=== PATIENT | female | born 1985 | race Caucasian/White ===

== ENCOUNTER → 2016-11-28 | Outpatient (CLI) | payer OTHER | LOC: FIMAGING 07:36 | PROVIDERS: ATTEND Obstetrics & Gynecology | DX: O26.852 Spotting complicating pregnancy, second trimester (principal); Z3A.17 17 weeks gestation of pregnancy ==

== ENCOUNTER → 2016-12-09 | Outpatient (CLI) | payer OTHER | LOC: FIMAGING 14:07 | PROVIDERS: ATTEND Obstetrics & Gynecology | DX: O26.879 Cervical shortening, unspecified trimester (principal); Z3A.19 19 weeks gestation of pregnancy ==

== ENCOUNTER → 2016-12-17 | Outpatient (CLI) | payer OTHER | LOC: FIMAGING 14:48 | PROVIDERS: ATTEND Obstetrics & Gynecology | DX: Z34.92 Encounter for supervision of normal pregnancy, unspecified, second trimester (principal); Z3A.20 20 weeks gestation of pregnancy ==

== ENCOUNTER → 2016-12-24 | Outpatient (CLI) | payer OTHER | LOC: FIMAGING 14:20 | PROVIDERS: ATTEND Obstetrics & Gynecology | DX: O26.872 Cervical shortening, second trimester (principal); Z3A.20 20 weeks gestation of pregnancy ==

== ENCOUNTER → 2016-12-30 | Outpatient (CLI) | payer OTHER | LOC: FIMAGING 07:39 | PROVIDERS: ATTEND Obstetrics & Gynecology | DX: O26.872 Cervical shortening, second trimester (principal); Z3A.22 22 weeks gestation of pregnancy ==

== ENCOUNTER → 2017-01-06 | Outpatient (CLI) | payer OTHER | LOC: FIMAGING 09:30 | PROVIDERS: ATTEND Obstetrics & Gynecology | DX: O26.872 Cervical shortening, second trimester (principal); Z3A.23 23 weeks gestation of pregnancy ==

== ENCOUNTER 2017-03-13 11:11 | Observation (INO) | payer OTHER ==
--- NOTE | 2017-03-13 14:35 | GHP ---
[f rep st] PREOP HISTORY AND PHYSICAL DATE OF ADMISSION: 03/13/2017 Observation History and Physical ADMITTING DIAGNOSIS: Intrauterine at 32-4/7 weeks' gestation with contractions. HISTORY OF PRESENT ILLNESS: The patient is a 31-year-old, 2, para 1-0-0-1, who is 32-4/7 wee ks' gestation set by a first trimester ultrasound. She has been followed in this for cervi bettina shortening and cervical funneling. Has been monitored with cervical length ultrasounds during he r second trimester, with the last evaluation at approximately 28 weeks. At that time, her cervix had been stable for over a month between 2.3 and 2.8 cm. She was started on vaginal Prometrium and has continued that to this point. On the night of the , the patient began having increased contractio ns, which were radiating from her abdomen to her lower back, causing episodes of shortness of breath because of pain. They were rhythmic, increasing in intensity over the evening, and she noticed some bright red vaginal discharge. She presented to the office for evaluation. Fundal height was appropr iate. heart tones were 130s and appropriate for gestational age. fibronectin was done. Cervical exam was performed, and her cervix was found to be 1 to 1.5 cm, 60% effaced, and soft. The patient was sent to labor and delivery for continuous monitoring, evaluation for labor , and to await the results of fibronectin. On Labor and Delivery, patient was monitored. Her heart tones were in the 130s, reactive, moderate variability, category 1. She had some irritab ility, but no regular contractions over several hours of monitoring, and her fibronectin return ed as negative. At this point, the patient was given reassurance and discharged home with instructmaddy ns to continue her vaginal progesterone and continue her adequate p.o. hydration and modified activit y, as well as pelvic rest, and to follow up in the office as scheduled on 03/18/2017, and to call for increased contractions, vaginal bleeding, or other concerns. /[id number]/MODL
== END 2017-03-13 14:00 | disposition home or self-care (01) ==
LOC: INTOOBSV 11:11 → FLD 11:11
PROVIDERS: ADMIT Obstetrics & Gynecology; ATTEND Obstetrics & Gynecology
DX: O60.03 Preterm labor without delivery, third trimester (principal); O26.873 Cervical shortening, third trimester; Z3A.32 32 weeks gestation of pregnancy
CPT/HCPCS: 59025; G0378

== ENCOUNTER 2017-05-09 06:00 | Inpatient (IN) | payer OTHER ==
[2017-05-09] MEDS ORDERED: LIDOCAINE 1% 300 MG/30 ML SDV ONE ×2 (09:18)
[2017-05-09] MEDS ORDERED: OXYTOCIN 10 UNIT/ML VIAL ONE ×2 (09:19)
[2017-05-09] MEDS ORDERED: AMMONIA AROMATIC 1 EACH AMP IH ONE ×2 (09:19)
[2017-05-09] MEDS ORDERED: OLIVE OIL 118 ML BTL ONE ×2 (09:19)
[2017-05-09] MEDS ORDERED: MISOPROSTOL 200 MCG TAB ONE ×2 (09:20)
[2017-05-09 09:25] LABS: PLATELET COUNT 192 10^3/uL (150-400)
[2017-05-09] MEDS ORDERED: LR 500 ML IV PRN ×2 (09:37)
[2017-05-09] MEDS ORDERED: OXYTOCIN 30 UNIT in LR 500 ML IV SCH ×2 (09:45→19:15)
--- NOTE | 2017-05-09 10:13 | GHP ---
[f rep st] PREOP HISTORY AND PHYSICAL DATE OF ADMISSION: 05/09/2017 ADMITTING DIAGNOSIS: Intrauterine at 40 and 4/7 weeks' gestation for elective induction of labor. HISTORY OF PRESENT ILLNESS: The patient is a 32-year-old, 4, para 1-0-2-1, with a last menst rual period of 07/29/2016, and EDC of 05/05/2017. She has had good care at [facility], [place] since transfer from [facility] at 27 weeks. Early in her she was noted to have a shortened cervical length on a 20 week anatomy scan. She was started on vaginal progesterone and watched very closely throughout her second trimester for signs and symptoms of labor or cervical incompetence. She stabilized, was discontinued off her vaginal progesterone at 36 weeks and has now progressed to 40 and 4/7 weeks' gestation. Other than that, she has no significant risk factors and no complaints today. She has good movement. No leakage of fluid. No vagina l bleeding. Really no contractions and a negative 10-point review of systems. PAST OBSTETRICAL HISTORY: In 2015, she had a viable male, 7-pounds 15-ounces, with an elective induc tion secondary to post-term. Had a vacuum delivery, was GBS positive, but no other complications. I n 2006, she had an elective termination. In 2014 she had an SAB with a blighted ovum. She is gravid a 4, para 1-0-2-1. PAST GYNECOLOGICAL HISTORY: She has a history of an abnormal Pap in her early 20s. She had a colpo, no treatment and no other cervical problems. All of her Paps have been normal since, and she had a recent Pap this year. She has a history of ParaGard use and control pills and condoms. No oth er issues. She has a normal menstrual triad and this was a planned . PAST MEDICAL HISTORY: She has no significant past medical history or chronic medical issues. PAST SURGICAL HISTORY: Elective termination in 2006 and she had a left ACL surgery in 2008. ALLERGIES: She has no known drug allergies. MEDICATIONS: Include vitamins and DHA. LABORATORY DATA: She is B positive, antibody negative, RPR nonreactive, rubella immune, hepatitis ne gative, HIV negative. She declined genetic screening. Pap normal. Gonorrhea and chlamydia normal. One hour GTT 93. GBS was negative. SOCIAL HISTORY: She is . She lives with her , Fernando, and her son, Zena. 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 She denies tobacco, alcohol, and drug use. FAMILY HISTORY: Her parents have chronic hypertension. Maternal grandmother has Factor V Leiden. M other has COPD. She is a former smoker. Parents also have type 2 diabetes. Mom with hypothyroidism . Maternal grandmother had colon cancer. Paternal grandfather, glioblastoma. Paternal grandmother of colon cancer at age 37. Paternal uncle had non Hodgkin lymphoma and her mother had breast ca ncer at age 58. No other significant history. OBJECTIVE: Today she is afebrile. Vital signs are stable. heart tones are 120s, reactive, mo derate variability, category 1. She is not maryjane. Cervix is 4, 80%, -2. She has a bulging ba g of water. ASSESSMENT/PLAN: A 32-year-old 4, para 1-0-2-1 who is at 40 and 4/7 weeks' gestation for an elective induction of labor. Patient will be started on Pitocin per protocol. Desires an epidural f or pain control at the time. Expect vaginal delivery. /[id number]/MODL
[2017-05-09] MEDS ORDERED: fentaNYL 2MCG/ML/BUP 0.1% RTU 100 ML BAG EP ONE ×2 (14:55)
[2017-05-09] MEDS ORDERED: PHENYLEPHRINE HCL 100 MCG/ML SYR ONE ×2 (14:55)
[2017-05-09] MEDS ORDERED: BUPIVACAINE 0.25% 30 ML SDV ONE ×2 (14:55)
[2017-05-09] MEDS ORDERED: NALOXONE HCL 0.4 MG/ML INJ IVP PRN ×2 (15:22)
[2017-05-09] MEDS ORDERED: METOCLOPRAMIDE 10 MG/2 ML VIAL IVP PRN ×2 (15:22)
[2017-05-09] MEDS ORDERED: ONDANSETRON 4 MG/2 ML VIAL IVP PRN ×2 (15:22)
[2017-05-09] MEDS ORDERED: PHENYLEPHRINE HCL 100 MCG/ML SYR IVP PRN ×2 (15:22)
--- NOTE | 2017-05-09 15:26 | PREANESOB ---
Obstetric Pre-Anesthesia Info - General Info Proposed Procedure: cse for L and : 4 Para: 1 CLAUS: 05/05/17 Gestational Age: 40 week(s) and 4 day(s) - Info Status: Full Term (induction) - Labor Status Cervical Dilation per last OB SVE: 5 Rupture of Membranes Date: 05/09/17 (planned post CSE) Pitocin: In Use PIH: No Magnesium Sulfate in Use: No Indications for Labor Analgesia: Augmentation of Labor, Induction of Labor Labor Epidural: Proposed Anesthesia Allergies/Adverse Reactions: Allergy/AdvReac Type Severity Reaction Status Date / Time No Known Allergies Allergy Unverified 05/09/17 10:12 Home Medications: Medication Instructions Recorded 1 tab PO DAILY 10/16/15 Visit Medications: Generic Name Dose Route Start Last Admin Trade Name Freq PRN Reason Stop Dose Admin Oxytocin 30 unit/ Lactated 503 mls @ 0 mls/hr 05/09/17 09:45 05/09/17 10:00 Ringer's IV 11/05/17 09:44 503 mls CONT EZEQUIEL Administration Protocol Per Protocol Discontinued Medications Generic Name Dose Route Start Last Admin Trade Name Freq PRN Reason Stop Dose Admin Ammonia (Aromatic Spirit) Confirm 05/09/17 09:19 Ammonia Aromatic Administered 05/09/17 09:20 Dose 1 each IH .STK-MED ONE Bupivacaine HCl Confirm 05/09/17 14:55 Sensorcaine 0.25% Sdv Administered 05/09/17 14:56 Dose 30 ml .ROUTE .STK-MED ONE Fentanyl/Bupivacaine HCl Confirm 05/09/17 14:55 Fentanyl/Bupivacaine/Ns 2 Mcg/Ml 0.1% (Premix Administered 05/09/17 14:56 Dose 100 ml EP .STK-MED ONE Lactated Ringer's 500 mls @ 500 mls/hr 05/09/17 09:37 05/09/17 10:00 Lr IV 500 mls PRN PRN Administration Maternal Hypotension Lidocaine HCl Confirm 05/09/17 09:18 Lidocaine Hcl 1% Administered 05/09/17 09:19 Dose 300 mg .ROUTE .STK-MED ONE Misoprostol Confirm 05/09/17 09:20 Cytotec Administered 05/09/17 09:21 Dose 1,000 mcg .ROUTE .STK-MED ONE [place] [employer] Confirm 05/09/17 09:19 Sweet Oil Administered 05/09/17 09:20 Dose 118 ml .ROUTE .STK-MED ONE Oxytocin Confirm 05/09/17 09:19 Pitocin Administered 05/09/17 09:20 Dose 40 unit .ROUTE .STK-MED ONE Phenylephrine HCl Confirm 05/09/17 14:55 Neosynephrine Administered 05/09/17 14:56 Dose 1,000 mcg .ROUTE .STK-MED ONE - Anesthesia History Response to Local Anesthetics: Normal Anesthesia & Operative History: No Prior Problems Family Anesthesia History: Negative - Social History Substance Use/Abuse: Denies - Vital Signs Height/Weight (Nursing): Height 170.18 cm Weight 74.389 kg - Focused Exam Neck exam: FROM Mallampati Score: Class 1 Mouth exam: normal dental/mouth exam Pulmonary: no respiratory distress Cardiovascular: regular rate and rhythym Labs: 05/09/17 09:05 Patient ABO/Rh B POSITIVE 05/09/17 09:05 - Plan Anesthetic Plan: CSE for L Consent Signed and on Chart: Yes Patient/Guardian Understands and Agrees to Plan: Yes Urgent/Emergent Case: Lesley santamaria completed preop but documented later for safe timely pt care
[2017-05-09] MEDS ORDERED: fentaNYL 2MCG/ML/BUP 0.1% RTU 100 ML EP SCH ×2 (15:30)
[2017-05-09] MEDS ORDERED: LR 500 ML IV SCH ×2 (15:30)
--- NOTE | 2017-05-09 17:01 | OBPROG ---
Labor Progress Note Assessment/Plan: Assessment: 32 year-old @ 40.4 weeks gestation admitted for post-dates elective IOL. Plan: Continue IV pitocin augmentation S/p epidural S/p AROM (clear fluid) 05/09/17 16:58 Subjective/Intrapartum Course: 05/09/17 17:00 Patient is comfortable s/p epidural. She feels contractions but only reports mild pain with contractions. She reports movement. Objective: 05/09/17 09:05 Patient ABO/Rh B POSITIVE 05/09/17 09:05 VSS NAD Abdomen soft/non-tender/gravid/S=D Cervical exam: 5-6 cm /95% effaced / -2 station / clear fluid on rupture Extremities: no excessive edema in BLE - SVE Dilation (cm): 5 Effacement (%): 90 Station: -2 Membranes: AROM Amniotic Fluid Color: Clear - Contraction Pattern Assessment Current Contraction Pattern: Regular - FHR Assessment Moore FHR (bpm): 120 FHR Pattern Variability: Moderate FHR Category: 1 Oxytocin Orders Assessment - Pre-Induction/Augmentation Assessment Gestational Age: 40 week(s) and 4 day(s) ICD10 Worksheet Patient Problems: Problems Problem Status Onset Current with history of pre-term labor in third trimester Acute Decreased movement Acute
[2017-05-09] MEDS ORDERED: METHYLERGONOVINE MAL 0.2 MG/ML INJ ONE ×2 (18:54)
[2017-05-09] MEDS ORDERED: HYDROCORTISONE 0.5% CREAM TP PRN ×2 (19:11)
[2017-05-09] MEDS ORDERED: HYDROCODONE/APAP 5/325 TAB PO PRN ×2 (19:11)
[2017-05-09] MEDS ORDERED: SIMETHICONE 80 MG TAB CHEW PO PRN ×2 (19:11)
--- NOTE | 2017-05-09 19:52 | OBDEL ---
Info Type: Vaginal Presentation at Delivery: Vertex L&D Analgesia/Anesthesia Type: Epidural GBS+: No Intrapartum Medications: Generic Name Dose Route Start Last Admin Trade Name Freq PRN Reason Stop Dose Admin Oxytocin 30 unit/ Lactated 503 mls @ 0 mls/hr 05/09/17 09:45 05/09/17 10:00 Ringer's IV 11/05/17 09:44 503 mls CONT EZEQUIEL Administration Protocol Per Protocol Discontinued Medications Generic Name Dose Route Start Last Admin Trade Name Freq PRN Reason Stop Dose Admin Lactated Ringer's 500 mls @ 500 mls/hr 05/09/17 09:37 05/09/17 10:00 Lr IV 500 mls PRN PRN Administration Maternal Hypotension - Hospital Course Intrapartum: 05/09/17 17:00 Patient is comfortable s/p epidural. She feels contractions but only reports mild pain with contractions. She reports movement. Indications for Delivery: Elective, Postterm Favorable Cervix Vaginal Delivery - Delivery Provider Delivery Physician/CNM: Bijan Subramanian - Labor and Delivery Onset of Contractions Date: 05/09/17 Onset of Contractions Time: 15:00 Rupture of Membranes Date: 05/09/17 Rupture of Membranes Time: 16:40 Amniotic Fluid Color: Clear Dilation Complete Date: 05/09/17 Dilation Complete Time: 18:18 Placenta Delivery Date: 05/09/17 Placenta Delivery Time: 18:56 Total Hours of Labor: 3 Non-surgical Procedures: Amniotomy Laceration: 2nd Degree Repair: 2-0, Vicryl Vaginal Sponge Count Correct: Yes Vaginal Needle Count Correct: Yes Vaginal Sweep Performed: Yes EBL: 500 Delivery Events: Nuchal Cord Delivery Comment: Spontaneous vaginal delivery of viable female . Apgars 8 @ 1 minute, 8 @ 5 minutes. With 2 pushes during 2nd stage head delivered ALICIA. Nuchal cord was noted and not reducible. Delivery was performed with nuchal cord. Anterior and then posterior shoulders delivered without difficulty or dystocia. Nuchal cord x 1 was reduced. Body delivered without difficulty and baby placed on mom's abdomen. 2nd degree midline laceration repaired with 2-0 Vicryl suture. Delayed cord clamp performed. Placenta delivered intact and complete. Large gush of blood after placental delivery. Pitocin 30 U IV given and Cytotec 800 mcg MT given and uterine fundus firmed up. EBL 500 mL. Good hemostasis following bimanual massage and systematic evaluation of cervix, vagina and perineum. ICD10 Worksheet Patient Problems: Problems Problem Status Onset Nuchal cord affecting delivery Acute Vaginal delivery Acute Current with history of pre-term labor in third trimester Acute Decreased movement Acute - ICD10 Problem Qualifiers (1) Nuchal cord affecting delivery (2) Vaginal delivery
[2017-05-10] MEDS: IBUPROFEN 600 MG TAB PO PRN ×8 (00:44→18:54)
[2017-05-10] MEDS: ACETAMINOPHEN 325 MG TAB PO PRN ×6 (05:26→22:28)
[2017-05-10] MEDS: DOCUSATE SODIUM 100 MG CAP PO PRN ×4 (08:22→20:37)
[2017-05-10] MEDS ORDERED: EPSOM SALT 454 GM TP ONE ×2 (09:47)
--- NOTE | 2017-05-10 12:29 | OBPP ---
Progress Note Assessment/Plan: Assessment: [id number] s/p PPD#1 anemia Plan: routine PP care start PO iron ambulate hydrate cont anticipate d/c home tomorrow 05/10/17 12:20 05/10/17 12:21 Subjective/ Course: 05/10/17 12:21 Pt doing well. She reports minimal pain and bleeding. She is without difficulty. FOB supportive and BS. Objective: 05/10/17 05:20 Patient ABO/Rh B POSITIVE 05/09/17 09:05 Temp Pulse Resp BP Pulse Ox 36.5 C 78 20 97/64 L 99 05/10/17 08:00 05/10/17 08:00 05/10/17 08:00 05/10/17 08:00 05/10/17 08:00 Uterine Position/Fundal Height: Umbilicus -2, Midline Uterine Tone: Firm Physical Exam - Physical Exam EENT: PERRL/EOMI Neck: non-tender, supple Abdomen: non-tender, soft Extremities: non-tender Skin: normal color, warm/dry Neuro/Psych: no motor/sensory deficits, alert, normal mood/affect, oriented x 3
[2017-05-10] MEDS: FERROUS SULFATE 325 MG TAB PO SCH ×2 (20:37)
[2017-05-11] MEDS: IBUPROFEN 600 MG TAB PO PRN ×4 (01:08→07:43)
[2017-05-11] MEDS: ACETAMINOPHEN 325 MG TAB PO PRN ×2 (01:40)
[2017-05-11] MEDS: DOCUSATE SODIUM 100 MG CAP PO PRN ×2 (07:46)
[2017-05-11] MEDS: FERROUS SULFATE 325 MG TAB PO SCH ×2 (07:46)
[2017-05-11 09:55] VITALS: BP 98/63; PULSE 74; RESP 16; TEMP 97.7; O2SAT 95
--- NOTE | 2017-05-11 11:31 | OBPP ---
Progress Note Assessment/Plan: 05/11/17 11:27 Assessment: 32-year-old white female PPD#2 doing well. Desires DC home. Plan: DC home today. Subjective/ Course: 05/10/17 12:21 Pt doing well. She reports minimal pain and bleeding. She is without difficulty. FOB supportive and BS. 05/11/17 11:29 Patient is . Denies significant lochia, cramping or pain. She is ambulating and denies significant faintness or weakness. She requests DC home today. Objective: 05/10/17 05:20 Patient ABO/Rh B POSITIVE 05/09/17 09:05 Temp Pulse Resp BP Pulse Ox 36.5 C 74 16 98/63 L 95 05/11/17 08:00 05/11/17 08:00 05/11/17 08:00 05/11/17 08:00 05/11/17 08:00 PP HCT 29 Uterine Position/Fundal Height: Umbilicus -2 Uterine Tone: Firm Physical Exam - Physical Exam EENT: normal ENT inspection Neck: supple Respiratory: lungs clear, normal breath sounds Cardiac/Chest: normal peripheral pulses, regular rate, rhythm Abdomen: normal bowel sounds, hypoactive bowel sounds, non-tender, soft Extremities: normal range of motion, non-tender, normal inspection DTR- Lower Extremities: Knee (R): 1+, Knee (L): 1+ Skin: normal color, warm/dry Neuro/Psych: no motor/sensory deficits, alert, normal mood/affect, oriented x 3
--- NOTE | 2017-05-11 11:32 | OBGCSDC ---
General Delivery Information - General Info : 4 Para: 2 Abortions: 2 Type: Vaginal L&D Analgesia/Anesthesia Type: Epidural Admission Date: 05/09/17 Labs: Patient ABO/Rh B POSITIVE 05/09/17 09:05 Hct 29.7 % (38.0-47.0) L D 05/10/17 05:20 - Hospital Course Intrapartum: 05/09/17 17:00 Patient is comfortable s/p epidural. She feels contractions but only reports mild pain with contractions. She reports movement. : 05/10/17 12:21 Pt doing well. She reports minimal pain and bleeding. She is without difficulty. FOB supportive and BS. 05/11/17 11:29 Patient is . Denies significant lochia, cramping or pain. She is ambulating and denies significant faintness or weakness. She requests DC home today. Vaginal - Delivery Provider Delivery Physician/CNM: Bijan Subramanian - Diagnosis Amniotic Fluid Color: Clear Laceration: 2nd Degree Repair: 2-0, Vicryl Delivery Events: Nuchal Cord - Procedures Non-surgical Procedures: Amniotomy - Delivery Non-surgical Procedures: Amniotomy EBL: 500 Data Moore Delivery Date: 05/09/17 Delivery Time: 19:38 CLAUS: 05/05/17 Gestational Age: 40 week(s) and 6 day(s) Sex of : Female [place] Weight (gm): 3708 g Score (1 Min): 8 Score (5 Min): 8 Discharge Information - Discharge Information Condition: Good Instruction/Follow Up: Four Weeks, Six Weeks
== END 2017-05-11 13:10 | disposition home or self-care (01) | DRG 774 ==
LOC: FLD 08:20 → FOB 22:30
PROVIDERS: ADMIT Obstetrics & Gynecology Gynecology; ATTEND Obstetrics & Gynecology Gynecology
PROC: 3E0P7GC Introduction of Other Therapeutic Substance into Female Reproductive, Via Natural or Artificial Opening (ICD-10-PCS; principal; 2017-05-09)
PROC: 10E0XZZ Delivery of Products of Conception, External Approach (ICD-10-PCS; principal; 2017-05-09)
PROC: 0KQM0ZZ Repair Perineum Muscle, Open Approach (ICD-10-PCS; principal; 2017-05-09)
PROC: 10907ZC Drainage of Amniotic Fluid, Therapeutic from Products of Conception, Via Natural or Artificial Opening (ICD-10-PCS; principal; 2017-05-09)
DX: O48.0 Post-term pregnancy (principal); O70.1 Second degree perineal laceration during delivery; O69.81X0 Labor and delivery complicated by cord around neck, without compression, not applicable or unspecified; O72.1 Other immediate postpartum hemorrhage; O90.81 Anemia of the puerperium; Z3A.40 40 weeks gestation of pregnancy; Z37.0 Single live birth
CPT/HCPCS: J2210; J2370

== ENCOUNTER → 2018-01-08 | Outpatient (CLI) | payer OTHER | LOC: FIMAGING 15:47 | PROVIDERS: ATTEND Nurse Practitioner Women's Health | DX: T83.32XA Displacement of intrauterine contraceptive device, initial encounter (principal) ==

== ENCOUNTER 2018-01-09 07:50 | Day surgery (SDC) | payer OTHER ==
--- NOTE | 2018-01-09 07:24 | GHP ---
[f rep st] PREOP HISTORY AND PHYSICAL DATE OF SURGERY: The patient is slated for surgery on 01/09/2018 on the gynecology service. HISTORY UPON ADMISSION: The patient is a 32-year-old, G4, P2, A2, who recently had an IUD placed on 01/05 which now has evidently perforated through her uterus and is extrauterine position in the abdom en. The patient had an x-ray performed on 01/08 showing the IUD inverted, anterior to the rectum and posterior to the uterus. The patient had presented to [facility] for evaluation due to ri ght lower quadrant pain and had an ultrasound performed in the office that showed a normal-appearing uterus with thin endometrium, but no evidence of an IUD. Ovaries both normal. The patient was repor ting 7 to 8/10 pain, especially noted on exam on point pressure on the right side of the uterus. The patient was able to proceed with normal daily activities and is walking around comfortably, however, reports that she is not able to put off proceeding with surgery due to the pain. The patient is cou nseled strongly that her recent ibuprofen use increases the risk for bleeding during surgery and it w ould be most advisable to put off the surgery a week and abstain from ibuprofen. The patient is repo rting that this is more urgent and she understands her risk of bleeding and wants to proceed with tanya kathe. The patient will be counseled about the risks and benefits of laparoscopy and the consent form will be signed at bedside before surgery. PAST MEDICAL HISTORY: The patient has no significant past medical history or chronic medical issues. PAST SURGICAL HISTORY: Terminated in 2006, left ACL surgery in 2008. ALLERGIES: The patient has no known drug allergies. CURRENT MEDICATIONS: Only vitamins and ibuprofen 800 mg q.8 hours and Tylenol 1000 mg q.8 h ours. PAST OBSTETRIC HISTORY: In 2015, a viable male delivered by vacuum extraction. In 2006 had an elect taras termination. In 2014, an SAB with a blighted ovum. The patient most recently had an uncomplicat ed vaginal delivery in May 2017. The patient currently is approximately 8 months and is . LABORATORY DATA: No recent labs except a urine test on 01/05 that was negative. CBC was d rawn on admission. SOCIAL HISTORY: The patient is , lives with her and son. The patient is a nonsmoker. No alcohol or drug use. FAMILY HISTORY: Parents have chronic hypertension, type 2 diabetes. Mother has COPD and is a former smoker as well as hypothyroidism. Maternal grandmother with factor V Leiden deficiency as well as c olon cancer. Paternal grandfather with glioblastoma and paternal grandmother with colon cancer. 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 Patient had a colposcopy but no other treatm ent. All other Pap smears have been normal since then. The patient reports having a ParaGard for bi rth control years ago which caused her discomfort. The patient reports she really does not tolerate control pills with quite a hormonal side effect. The patient had another ParaGard placed in 2017, however, reports that the IUD was spontaneously expelled. Ultrasound had confirmed appropria te position after placement. Most recently on January 05, again, another ParaGard IUD was placed. An ul trasound confirmed appropriate position in the retroverted uterus. PHYSICAL EXAM: Upon evaluation, the patient is a well-developed, well-nourished, white female in no visible distress until the exam, at which point the patient had significant discomfort on point press ure. The patient is irritated with this most recent complication. VITAL SIGNS: The patient's blood pressure 98/64. The patient is clinically afebrile. Weight 133 pounds. LUNGS: Clear to auscultat ion bilaterally. CARDIOVASCULAR: Regular rate and rhythm. ABDOMEN: Soft and nontender. PELVIC EX AM: Was performed and the uterus is mobile and tender, particularly on the right lateral side. No m asses noted. Ultrasound and x-ray as noted above. EXTREMITIES: Nontender. No edema. ASSESSMENT: Malpositioned intrauterine device which appears outside the uterus upon x-ray after rece nt placement on January 05. PLAN: We will proceed with laparoscopy with thorough counseling to the patient that high-dose ibupro fen use increases the risk of bleeding. The patient was counseled about transfusion and has signed t he consent form. Plan to proceed with laparoscopy for removal for the IUD. /[id number]/MODL
[2018-01-09] MEDS ORDERED: CLINDAMYCIN 900 MG/DEXTROSE 50 ML IV ONE (08:31)
[2018-01-09] MEDS ORDERED: ceFAZolin 2 GM/DEXTROSE 100 ML IV ONE (08:31)
[2018-01-09 08:56] LABS: PLATELET COUNT 262 10^3/uL (150-400)
[2018-01-09] MEDS ORDERED: MIDAZOLAM 2 MG/2 ML VIAL IVP ONE (09:49)
--- NOTE | 2018-01-09 09:50 | PDANEPAE ---
ANE History of Present Illness lap removal of IUD ANE Past Medical History - Cardiovascular History Hx Hypertension: No Hx Arrhythmias: No Hx Chest Pain: No Hx Coronary Artery / Peripheral Vascular Disease: No Hx CHF / Valvular Disease: No Hx Palpitations: No - Pulmonary History Hx COPD: No Hx Asthma/Reactive Airway Disease: No Hx Recent Upper Respiratory Infection: No Hx Oxygen in Use at Home: No Hx Sleep Apnea: No - Endocrine History Hx Diabetes: No Hypothyroid: No Hyperthyroid: No Obesity: no - Chronic Pain History Chronic Pain: No ANE Review of Systems Review of systems is: negative Review of Systems: - Exercise capacity Exercise capacity: >=4 METS ANE Patient History - Allergies Allergies/Adverse Reactions: No Known Allergies Allergy (Unverified 05/09/17 10:12) - Home Medications Home medications: home medication list seen and reviewed - NPO status NPO Since - Liquids (Date): 01/09/18 NPO Since - Liquids (Time): 03:00 NPO Since - Solids (Date): 01/08/18 NPO Since - Solids (Time): 20:00 - Anes Hx Anes Hx: no prior problems - Smoking Hx Smoking Status: Never smoked ANE Labs/Vital Signs - Labs Result Diagrams: 01/09/18 08:31 - Vital Signs Blood Pressure: 107/72 Heart Rate: 60 Respiratory Rate: 14 O2 Sat (%): 96 Height: 170.18 cm Weight: 60.328 kg ANE Physical Exam - Airway Neck exam: FROM Mallampati Score: Class 1 Mouth exam: normal dental/mouth exam - Pulmonary Pulmonary: no respiratory distress - Cardiovascular Cardiovascular: regular rate and rhythym - ASA Status ASA Status: I ANE Anesthesia Plan Anesthesia Plan: general endotracheal anesthesia
[2018-01-09] MEDS ORDERED: LIDOCAINE 2% 5 ML SDV ONE (09:54)
[2018-01-09] MEDS ORDERED: fentaNYL 100 MCG/2 ML INJ ONE ×2 (09:54)
[2018-01-09] MEDS ORDERED: ROCURONIUM 50 MG/5 ML VIAL ONE (09:54)
[2018-01-09] MEDS ORDERED: PROPOFOL 200 MG/20 ML VIAL ONE (09:54)
[2018-01-09] MEDS ORDERED: BUPIVACAINE 0.25% 30 ML SDV ONE (09:56)
[2018-01-09] MEDS ORDERED: ONDANSETRON 4 MG/2 ML VIAL ONE (10:05)
[2018-01-09] MEDS ORDERED: SUGAMMADEX SODIUM 200 MG/2 ML VIAL IVP ONE (10:05)
[2018-01-09] MEDS ORDERED: KETOROLAC 30 MG/1 ML SDV ONE (10:05)
[2018-01-09] MEDS ORDERED: DEXAMETHASONE 4 MG/ML VIAL ONE (10:05)
--- NOTE | 2018-01-09 10:24 | PDHPUP ---
History & Physical Update H&P update statement: This history and physical update is based on an assessment of the patient which was completed after admission or registration (within 24 hours), but prior to the surgery/procedure. H&P update: no change in patient's condition since H&P completed
--- NOTE | 2018-01-09 10:47 | POSTANESTH ---
Post Anesthetic Evaluation Cardiovascular Status: Normal, Stable Respiratory Status: Normal, Stable Level of Consciousness/Mental Status: Can Participate in Eval, Mildly Sleepy, Arousable Pain Control: Adequate, Prn Tx Ordered Nausea/Vomiting Control: Adequate, Prn Tx Ordered Complications Possibly Related to Anesthesia: None Noted
[2018-01-09] MEDS ORDERED: LR 500 ML IV PRN (11:06)
[2018-01-09] MEDS ORDERED: HYDROCODONE/APAP 5/325 TAB PO PRN (11:06)
[2018-01-09] MEDS ORDERED: ACETAMINOPHEN 500 MG TAB PO PRN (11:06)
[2018-01-09] MEDS ORDERED: oxyCODONE IR 5 MG TAB PO PRN (11:06)
[2018-01-09] MEDS ORDERED: ALBUTEROL 3 ML DEYVIAL IH PRN (11:06)
[2018-01-09] MEDS ORDERED: fentaNYL 100 MCG/2 ML INJ IVP PRN (11:06)
[2018-01-09] MEDS ORDERED: ONDANSETRON 4 MG/2 ML VIAL IVP PRN (11:06)
[2018-01-09] MEDS ORDERED: NALOXONE HCL 0.4 MG/ML INJ IVP PRN (11:06)
[2018-01-09] MEDS ORDERED: HYDROmorphONE/DILAUDID 1 MG/ML INJ IVP PRN (11:06)
[2018-01-09] MEDS ORDERED: PROMETHAZINE HCL 25 MG/ML INJ IVP PRN (11:06)
[2018-01-09] MEDS ORDERED: ePHEDrine SULFATE 25 MG/5 ML SYR ONE (11:18)
--- NOTE | 2018-01-09 11:41 | POSTOPPROG ---
Post Op Note Date of Operation: 01/09/18 Surgeon: Kelly Cramer Car Dumper Operator: Tahira Chahal SA Anesthesiologist: Jerry Armijo MD Anesthesia: GET(General Endotracheal) Pre-op Diagnosis: uterine perforation with IUD Post-op Diagnosis: same Indication: IUD placement on 01/05 but more pain and u/s shows no IUD and XRay shows IUD Procedure: LSC removal of IUD Findings: nl uterus - no identifiable perf, nl ov and tubes, nl appi/liver, no bld Inf/Abcess present in the surg proc area at time of surgery?: No Depth: Organ Space EBL: Minimal Complications: none Specimen(s): none - IUD discarded
[2018-01-09 13:20] VITALS: BP 94/70
--- NOTE | 2018-01-29 01:14 | GOP ---
[f rep st] OPERATIVE REPORT DATE OF OPERATION: 01/09/2018 SURGEON: Kelly Cramer MD CLINICAL LIAISON: ASHANTI Martin. ANESTHESIA: General endotracheal anesthesia. ANESTHESIOLOGIST: Jerry Armijo MD, PREOPERATIVE DIAGNOSIS: Uterine perforation with intrauterine device. POSTOPERATIVE DIAGNOSIS: Uterine perforation with intrauterine device. PROCEDURE PERFORMED: Laparoscopic removal of intrauterine device. FINDINGS: SPECIMENS: There was no pathology specimen. No signs of infection. No complications. ESTIMATED BLOOD LOSS: Minimal. INDICATIONS: Patient is a 32-year-old G4, P2, A2 with an IUD placed on January 05, 2018, which was found to have perforated through the uterus by ultrasound evaluation when the patient presented to the off ice due to pain. There was a normal-appearing uterus on ultrasound with a thinned endometrium. Ther e was no evidence of IUD. Patient was reporting 8/10 pain on the right lower quadrant. An x-ray was performed that showed the IUD inverted anterior to the rectum and posterior to the uterus. The carole ent was advised as to the findings and was advised to proceed with laparoscopy. Risks and benefits o f the surgery were discussed with the patient and the consent form signed. DESCRIPTION OF PROCEDURE: The patient was taken to the operating room where following satisfactory g eneral endotracheal anesthesia the patient was placed in dorsal lithotomy position. The patient had received preoperative antibiotics and had urinated prior to coming to the operating room. The patien t had SCDs on her lower extremities for DVT prophylaxis. After the patient was anesthetized, the pat ient was prepped and draped in usual sterile manner for laparoscopy. A sterile speculum was placed v aginally, and a tenaculum was placed on the anterior lip of the cervix. The [place] uterine manipulato r was attached to the cervix for manipulation during laparoscopy. Following this, lidocaine was inje cted at the infraumbilical area. A small incision was made along the umbilical natural crease. Upwa rd traction was made on the anterior abdominal wall and through the small incision. The Veress needl e was introduced into the abdominal cavity. There were normal low intraabdominal pressures, and thro ugh the Veress needle, CO2 was used to insufflate the abdomen. After good insufflation then a 5 mm t rocar was introduced through this incision, again with upward traction on the abdominal wall. The la paroscopic camera was introduced through this port and verified intraabdominal position. Following t his, the 2nd trocar was placed. This was introduced in the left lower quadrant under direct visualiz ation. Through this, a blunt probe was introduced and inspection was performed. There was good visu alization and minimal adhesions noted. The uterus itself appeared normal, and there was no evident a bony where perforation had occurred. The serosal surface appeared normal. Inspection was performed o f both adnexal areas. Tubes and ovaries appeared normal. Liver edge appeared normal as well as appe ndix. The IUD was noted to be floating under the right fallopian tube. It was not attached to any t issue. It was picked up easily and then brought out through the 5 mm port. Again careful inspection was performed to try to identify the point of perforation. The uterosacral ligaments appeared good posteriorly, and after manipulation there was a small amount of erythema under the left adnexal area. Anteriorly, there was no sign of perforation. There was minimal free fluid. The procedure was com pleted. The left lower quadrant trocar was removed under direct visualization, and there was no blee ding. The camera was removed and CO2 allowed to escape through that umbilical port. The umbilical p ort then was removed. Both 5 mm trocar sites were closed with horizontal mattress-type stitch of 4-0 Monocryl. Mastisol was used on the surface, and Steri-Strips were applied as well as Band-Aids at e ach site. The [place] uterine manipulator and tenaculum were taken off the cervix, and there was no bl eeding. The patient was cleaned off and taken out of position. She was awakened and taken to the re covery room in stable condition. /[id number]/MODL
== END 2018-01-09 13:20 | disposition home or self-care (01) ==
LOC: FSGY 07:50
PROVIDERS: ATTEND Obstetrics & Gynecology
PROC: 0UPD8HZ Removal of Contraceptive Device from Uterus and Cervix, Via Natural or Artificial Opening Endoscopic (ICD-10-PCS; principal; 2018-01-09 09:00)
DX: T83.32XA Displacement of intrauterine contraceptive device, initial encounter (principal)
CPT/HCPCS: J0690; J1100; J1885; J2250; J2405; J2704; J3010